=== PATIENT | female | born 1990 | race Caucasian/White ===

== ENCOUNTER 2020-03-03 13:44 | Emergency (ER) | payer OTHER, SELFPAY ==
[2020-03-03 14:02] VITALS: BP 136/75; PULSE 102; RESP 20; TEMP 36.6; O2SAT 100
--- NOTE | 2020-03-03 14:24 | ED.URI ---
HPI - URI/Sore Throat General Chief Complaint: Upper Respiratory Infection Stated Complaint: shortness of breath/sinus drainage/cough Time Seen by Provider: 03/03/20 14:25 Source: patient Mode of arrival: ambulatory Limitations: no limitations History of Present Illness HPI Narrative: Charlie Casarez is a 29 yo female with a PMH of epilepsy who comes to express care with complaints of sore throat cough and nasal drainage since Friday. She has twin 9-month-old babies and wants to make sure she doesn't have strep. States that she coughs/wheezes on occ Related Data Home Medications Medication Instructions Recorded Confirmed lamotrigine 200 mg PO BID 03/03/20 03/03/20 Allergies Allergy/AdvReac Type Severity Reaction Status Date / Time No Known Allergies Allergy Verified 03/03/20 14:21 Review of Systems Review of Systems: Narrative: CONSTITUTIONAL: Denies fever, chills, sweats. EYES: Denies visual changes, redness, discharge. ENT: Has rhinorrhea, mild congestion, has sore throat, otalgia. CARDIOVASCULAR: Denies chest pain, palpitations, edema. RESPIRATORY: Denies dyspnea, wheezing, mild cough GASTROINTESTINAL: Denies abdominal pain, nausea, vomiting, diarrhea. GENITOURINARY: Denies dysuria, hematuria, abnormal discharge SKIN: Denies rash or itching. NEUROLOGIC: Denies numbness, or focal weakness. PSYCHIATRIC: Denies anxiety or depression. [facility] Past Medical History Medical History (Updated 03/03/20 @ 14:36 by Constance Morales CNP) Preeclampsia Family History Family History Other Diabetes mellitus Hypertension Social History Social History (Updated 03/03/20 @ 14:34 by Constance Morales CNP) Smoking status: Never smoker Alcohol intake: current Comments At time of signature, I agree with nursing past medical, surgical, social and family history. There is no relevant family history pertinent to the presenting complaint. Exam Narrative: Exam Narrative: GENERAL: This is a well-nourished, well-developed patient, in mild distress. HEAD: normocephalic, atraumatic. EYES: Sclera clear/white. Vision is grossly intact. EARS: External ears normal, auditory canals clear and without drainage, TMs normal without perforation. Hearing grossly intact. NOSE: External nose normal without nasal discharge, nares with redness, has rhinorrhea. THROAT: Mucous membranes moist, posterior pharynx erythema NECK: Neck supple, mild tender on R CARDIOVASCULAR: mild tachycardic rate and rhythm without murmurs, gallops, or rubs. RESPIRATORY: Clear to auscultation. Breath sounds equal bilaterally. No wheezes, rales, or rhonchi. GASTROINTESTINAL: Abdomen soft, non-tender, SKIN: warm, intact with no suspicious lesions or rash, good texture and turgor. NEURO: awake, alert, and oriented to person, place and time. There were no obvious focal neurologic abnormalities. Steady gait EXTREMITIES: Normal range of motion. BACK: Nontender without deformity Course Course Emergency Course: Strep test Started on prednisone, Claritin, Vital Signs Vital signs: Vital Signs Temperature 97.8 F 03/03/20 14:02 Pulse Rate 102 H 03/03/20 14:02 Respiratory Rate 20 03/03/20 14:02 Blood Pressure 136/75 03/03/20 14:02 Pulse Oximetry 100 03/03/20 14:02 Temperature 97.8 F 03/03/20 14:02 Pulse Rate 102 H 03/03/20 14:02 Respiratory Rate 20 03/03/20 14:02 Blood Pressure 136/75 03/03/20 14:02 Pulse Oximetry 100 03/03/20 14:02 MDM - URI/Sore Throat Differential Diagnosis Differential diagnosis: Likely upper respiratory infection, sinusitis, bronchitis, pharyngitis and other Lab Data Labs: Strep Screen Presumptive Negative *(Reference Range: Negative)* Discharge Plan Discharge Clinical Impression: Pharyngitis Qualifiers: Pharyngitis/tonsillitis etiology: unspecified etiology Qualified Code(s): J02.9 - Acute pharyngitis,
== END 2020-03-03 14:59 | disposition home or self-care (01) ==
PROVIDERS: Emergency Provider Nurse Practitioner; PCP Internal Medicine
DX: J02.9 Acute pharyngitis, unspecified (principal); G40.909 Epilepsy, unspecified, not intractable, without status epilepticus
CPT/HCPCS: 87081; 87880; 99213; G0463

== ENCOUNTER 2022-09-15 11:38 | Emergency (ER) | payer OTHER, SELFPAY ==
--- NOTE | 2022-09-15 11:47 | ED.URI ---
HPI - URI/Sore Throat General Chief Complaint: Upper Respiratory Infection Stated Complaint: cold flu Time Seen by Provider: 09/15/22 12:03 Source: patient and RN notes reviewed Mode of arrival: ambulatory Limitations: no limitations History of Present Illness HPI Narrative: 32-year-old female presents concern for 2 week history of cough, nasal drainage, congestion. Reports cough keeps her awake at night. Reports headache and sore throat started today. She reports she has been taking [id number] medications without relief. MD elicited complaint: cough and nasal congestion Related Data Home Medications Medication Instructions Recorded Confirmed lamotrigine 200 mg tablet 200 mg PO BID 03/03/20 09/15/22 Allergies Allergy/AdvReac Type Severity Reaction Status Date / Time No Known Allergies Allergy Verified 09/15/22 11:45 Review of Systems Review of Systems: CONSTITUTIONAL: Reports malaise. Today chills, sweats, or fever. EYES: Denies visual changes, redness, or discharge. ENT: Reports rhinorrhea, congestion, sinus pain, and sore throat. CARDIOVASCULAR: Denies chest pain, palpitations, or edema. RESPIRATORY: Reports cough. Denies dyspnea. GASTROINTESTINAL: Denies abdominal pain, nausea, vomiting, diarrhea SKIN: Denies rash or itching. MUSCULOSKELETAL: Denies myalgia. NEUROLOGIC: Reports headache. All systems reviewed & are unremarkable except as noted in HPI and below PMFSH Past Medical History Medical History (Updated 09/15/22 @ 12:11 by Brittany Mensah NP) Preeclampsia Family History Family History Other Diabetes mellitus Hypertension Social History Social History (Updated 03/03/20 @ 14:34 by Consatnce Morales, S[employer]IOR LEAD DEVELOPER) Smoking status: Never smoker Alcohol intake: current Comments At time of signature, agree with nursing past medical, surgical, social and family history. There is no relevant family history pertinent to the presenting complaint Exam Narrative: GENERAL: Nontoxic appearing and in no acute distress. HEAD: Normocephalic EYES: PERRLA, conjunctivae clear ENT: Nares clear, turbinates edematous and erythematous, yellow discharge. Mucous membranes moist. TM pearly ash with dull light reflex bilaterally; no tragal tenderness. Oropharynx erythematous without lesions. Tonsils not enlarged and without exudate, no drooling, no hoarseness, no trismus, uvula midline. NECK: Supple. No lymphadenopathy CHEST: Clear to auscultation, breath sounds equal. No wheezing, rhonchi, rales, or stridor. No respiratory distress, speaks in full sentences. Cough noted HEART: Regular rate and rhythm. No murmur heard. SKIN: Warm, dry, no rash. NEURO: Alert and oriented x3. PSYCH: Normal mood and affect Course Course Emergency Course: Patient is aware of diagnosis, understands and agrees to treatment plan. Anticipatory guidance given. Patient agrees to follow-up as directed and is aware of reasons to seek care at the emergency department. Portions of this record may have been created with voice recognition software Level of Care: Express Care Visit Vital Signs Vital signs: Vital Signs Temperature 98.7 F 09/15/22 11:48 Pulse Rate 87 09/15/22 11:48 Respiratory Rate 20 09/15/22 11:48 Blood Pressure 134/65 09/15/22 11:48 Pulse Oximetry 100 09/15/22 11:48 Oxygen Delivery Room Air 09/15/22 11:48 Temperature 98.7 F 09/15/22 11:48 Pulse Rate 87 09/15/22 11:48 Respiratory Rate 20 09/15/22 11:48 Blood Pressure 134/65 09/15/22 11:48 Pulse Oximetry 100 09/15/22 11:48 Oxygen Delivery Room Air 09/15/22 11:48 Reviewed. MDM - URI/Sore Throat MDM Narrative Medical decision making narrative: Differential diagnosis considered: Wheatley virus, strep pharyngitis, allergic rhinitis, upper respiratory tract infection, sinusitis, rhinosinusitis, nasopharyngitis. viral pharyngitis, otitis media, otitis externa, p
[2022-09-15 11:48] VITALS: BP 134/65; PULSE 87; RESP 20; TEMP 37.1; O2SAT 100
== END 2022-09-15 12:14 | disposition home or self-care (01) ==
PROVIDERS: Emergency Provider Nurse Practitioner
DX: J32.9 Chronic sinusitis, unspecified (principal); J40 Bronchitis, not specified as acute or chronic
CPT/HCPCS: 99213; G0463

== ENCOUNTER 2022-10-19 14:24 | Emergency (ER) | payer OTHER, SELFPAY ==
[2022-10-19 14:29] VITALS: BP 114/75; PULSE 85; RESP 16; TEMP 36.6; O2SAT 100
--- NOTE | 2022-10-19 14:34 | ED.URI ---
HPI - URI/Sore Throat General Chief Complaint: Upper Respiratory Infection Stated Complaint: Sore Throat Source: patient and RN notes reviewed History of Present Illness HPI Narrative: 32-year-old female presents urgent care with complaints of sore throat since . Patient states her twins tested positive history was strep throat. Patient denies any known fevers or chills. Denies any ear pain, vomiting, diarrhea, chest pain, or shortness of breath. Some parts of this dictation were generated by voice recognition software and may contain typographical and/or grammatical inaccuracies. Related Data Home Medications Medication Instructions Recorded Confirmed lamotrigine 200 mg tablet 200 mg PO BID 03/03/20 10/19/22 Allergies Allergy/AdvReac Type Severity Reaction Status Date / Time No Known Allergies Allergy Verified 10/19/22 14:44 Review of Systems Review of Systems: CONSTITUTIONAL: Denies fever, chills, or sweats. EYES: Denies visual changes, redness, or discharge. ENT: sore throat CARDIOVASCULAR: Denies chest pain, palpitations, or edema. RESPIRATORY: Denies cough or dyspnea. GASTROINTESTINAL: Denies abdominal pain, nausea, vomiting, or diarrhea. GENITOURINARY: Denies dysuria or hematuria. SKIN: Denies rash or itching. MUSCULOSKELETAL: Denies back pain, joint pain, or myalgia. NEUROLOGIC: Denies headache, numbness, or weakness. [facility] Past Medical History Medical History (Updated 10/19/22 @ 14:45 by Lashae Blanchard, THUAN) Preeclampsia Family History Family History Other Diabetes mellitus Hypertension Social History Social History (Updated 03/03/20 @ 14:34 by Constance Morales, COPPER TAPPER) Smoking status: Never smoker Alcohol intake: current Comments At the time of my signature, I reviewed and agree with the nursing past medical, surgical, social, and family history. There is no relevant family history pertinent to the patient complaint. Exam Narrative: GENERAL: This is a well-nourished, well-developed patient, in no apparent distress. HEAD: normocephalic, atraumatic. EYES: PERRL. Sclera clear/white. Vision is grossly intact. EARS: External ears normal, auditory canals clear and without drainage, TMs normal without perforation. Hearing grossly intact. NOSE: External nose normal with no obvious nasal discharge, nares without redness, no rhinorrhea. THROAT: Mucous membranes moist, posterior pharynx erythemic. No exudate noted.. NECK: Neck supple, non-tender without lymphadenopathy, masses or thyromegaly. CARDIOVASCULAR: Regular rate and rhythm without murmurs, gallops, or rubs. RESPIRATORY: Clear to auscultation. Breath sounds equal bilaterally. No wheezes, rales, or rhonchi. GASTROINTESTINAL: Abdomen soft, non-tender, nondistended. Bowel sounds are active. No hepato-splenomegaly, or palpable masses. No guarding. SKIN: warm, intact with no suspicious lesions or rash, good texture and turgor. NEURO: awake, alert, and oriented to person, place and time. There were no obvious focal neurologic abnormalities. EXTREMITIES: No clubbing, cyanosis, or edema. No joint tenderness, effusion, or edema noted. BACK: Nontender without deformity or crepitance. No flank tenderness. Course Course Level of Care: Express Care Visit Vital Signs Vital signs: Vital Signs Temperature 98 F 10/19/22 14:29 Pulse Rate 85 10/19/22 14:29 Respiratory Rate 16 10/19/22 14:29 Blood Pressure 114/75 10/19/22 14:29 Pulse Oximetry 100 10/19/22 14:29 Oxygen Delivery Room Air 10/19/22 14:29 Temperature 98 F 10/19/22 14:29 Pulse Rate 85 10/19/22 14:29 Respiratory Rate 16 10/19/22 14:29 Blood Pressure 114/75 10/19/22 14:29 Pulse Oximetry 100 10/19/22 14:29 Oxygen Delivery Room Air 10/19/22 14:29 Reviewed MDM - URI/Sore Throat MDM Narrative Medical decision making narrative: Rapid strep is negative in the office; however
== END 2022-10-19 14:49 | disposition home or self-care (01) ==
PROVIDERS: Emergency Provider Nurse Practitioner Family
DX: J02.9 Acute pharyngitis, unspecified (principal)
CPT/HCPCS: 87081; 87880; 99213; G0463

== ENCOUNTER 2022-11-06 13:07 | Emergency (ER) | payer OTHER, SELFPAY ==
[2022-11-06 13:12] VITALS: BP 118/58; PULSE 86; RESP 20; TEMP 36.6; O2SAT 100
--- NOTE | 2022-11-06 13:22 | ED.URI ---
HPI - URI/Sore Throat General Chief Complaint: Upper Respiratory Infection Stated Complaint: sore throat headache fever Time Seen by Provider: 11/06/22 13:12 Source: patient and RN notes reviewed History of Present Illness HPI Narrative: Patient is a 32-year-old female who presents to urgent care with complaints of a sore throat since 5:00 a.m.. Patient states that she has also had a fever and headache. States that all 3 of her children are positive for strep as well as her [id number]. Patient took ibuprofen for symptoms. No other acute complaints. No acute distress noted. Patient aware of the plan of care. Some parts of this dictation were generated by voice recognition software and may contain typographical and/or grammatical inaccuracies. Related Data Home Medications Medication Instructions Recorded Confirmed lamotrigine 200 mg tablet 200 mg PO BID 03/03/20 11/06/22 Allergies Allergy/AdvReac Type Severity Reaction Status Date / Time No Known Allergies Allergy Verified 11/06/22 13:20 Review of Systems Review of Systems: CONSTITUTIONAL: Reports of fever EYES: Denies visual changes, redness, or discharge. ENT: Denies rhinorrhea, congestion, or otalgia. Reports of sore throat CARDIOVASCULAR: Denies chest pain, palpitations, or edema. RESPIRATORY: Denies cough or dyspnea. GASTROINTESTINAL: Denies abdominal pain, nausea, vomiting, or diarrhea. GENITOURINARY: Denies dysuria or hematuria. SKIN: Denies rash or itching. MUSCULOSKELETAL: Denies back pain, joint pain, or myalgia. NEUROLOGIC: Denies headache, numbness, or weakness. All other systems reviewed are negative, except as documented in HPI. PMFSH Past Medical History Medical History (Updated 11/06/22 @ 13:32 by FRIEDA Gil) Preeclampsia Family History Family History Other Diabetes mellitus Hypertension Social History Social History (Updated 03/03/20 @ 14:34 by Constance Morales, [employer]LE [employer] DEVELOPER) Smoking status: Never smoker Alcohol intake: current Comments At the time of my signature, I reviewed and agree with the nursing past medical, surgical, social, and family history. There is no relevant family history pertinent to the patient complaint. Exam Narrative: GENERAL: This is a well-nourished, well-developed patient, in no apparent distress. HEAD: normocephalic, atraumatic. EYES: PERRL. Sclera clear/white. Vision is grossly intact. EARS: External ears normal, auditory canals clear and without drainage, TMs normal without perforation. Hearing grossly intact. NOSE: External nose normal with no obvious nasal discharge, nares without redness, no rhinorrhea. THROAT: Mucous membranes moist, mild erythema to posterior pharynx with moderate postnasal drainage. NECK: Neck supple CARDIOVASCULAR: Regular rate and rhythm without murmurs, gallops, or rubs. RESPIRATORY: Clear to auscultation. Breath sounds equal bilaterally. No wheezes, rales, or rhonchi. SKIN: warm, intact with no suspicious lesions or rash, good texture and turgor. NEURO: awake, alert, and oriented to person, place and time. There were no obvious focal neurologic abnormalities. EXTREMITIES: No clubbing, cyanosis, or edema. Course Course Level of Care: Express Care Visit Vital Signs Vital signs: Vital Signs Temperature 97.8 F 11/06/22 13:12 Pulse Rate 86 11/06/22 13:12 Respiratory Rate 20 11/06/22 13:12 Blood Pressure 118/58 L 11/06/22 13:12 Pulse Oximetry 100 11/06/22 13:12 Oxygen Delivery Room Air 11/06/22 13:12 Temperature 97.8 F 11/06/22 13:12 Pulse Rate 86 11/06/22 13:12 Respiratory Rate 20 11/06/22 13:12 Blood Pressure 118/58 L 11/06/22 13:12 Pulse Oximetry 100 11/06/22 13:12 Oxygen Delivery Room Air 11/06/22 13:12 Reviewed MDM - URI/Sore Throat MDM Narrative Medical decision making narrative: Reviewed lab results with the patient. She is aware that she is
== END 2022-11-06 13:43 | disposition home or self-care (01) ==
PROVIDERS: Emergency Provider Nurse Practitioner Family
DX: J02.0 Streptococcal pharyngitis (principal)
CPT/HCPCS: 87880; 99213; G0463

== ENCOUNTER 2023-05-09 13:32 | Emergency (ER) | payer OTHER, SELFPAY ==
[2023-05-09 13:42] VITALS: BP 140/75; PULSE 90; RESP 16; TEMP 36.7; O2SAT 100
--- NOTE | 2023-05-09 14:06 | ED.URI ---
HPI - URI/Sore Throat General Chief Complaint: Upper Respiratory Infection Stated Complaint: Cough, Chest Congestion, Sore Throat Time Seen by Provider: 05/09/23 14:06 Source: patient, RN notes reviewed and old records reviewed Mode of arrival: ambulatory Limitations: no limitations History of Present Illness HPI Narrative: 33-year-old female presents to the [facility] with complaints of cough, chest congestion for 3 days. Sore throat started this morning. States that her twins just started school. Has taken ibuprofen, Fe Mucinex. Related Data Home Medications Medication Instructions Recorded Confirmed lamotrigine 200 mg tablet 200 mg PO BID 03/03/20 05/09/23 Allergies Allergy/AdvReac Type Severity Reaction Status Date / Time No Known Allergies Allergy Verified 11/06/22 13:20 Review of Systems Review of Systems: All systems reviewed & are unremarkable except as noted in HPI and below Constitutional: Constitutional: Reports no additional constitutional complaints Eyes: Eyes: Reports no additional eye complaints ENT: Reports as per HPI Cardiovascular: Cardiovascular: Reports no additional cardiovascular complaints, Denies chest pain and Denies dyspnea Respiratory: Respiratory: Reports as per HPI, Denies chest congestion, Reports cough and Denies dyspnea Gastrointestinal: Gastrointestinal: Reports no additional gastrointestinal complaints, Denies abdominal pain, Denies nausea and Denies vomiting Musculoskeletal: Musculoskeletal: Reports no additional musculoskeletal complaints Integumentary/Breasts: Skin/Breast: Reports system reviewed and no additional complaints, except as docu Neurologic: Reports system reviewed and no additional complaints, except as documented Psychiatric: Psychiatric: Reports no additional psychiatric complaints Allergic/Immunologic: Allergic/Immunologic: Reports no additional allergic/immunologic complaints PMFSH Past Medical History Medical History (Updated 05/10/23 @ 11:43 by Brittany Georges APRN) Epilepsy Preeclampsia Family History Family History Other Diabetes mellitus Hypertension Social History Social History Smoking status: Never smoker Alcohol intake: current Comments At the time of my signature, I reviewed and agree with the nursing past medical, surgical, social, and family history. There is no relevant family history pertinent to the patient complaint. Exam Const: General: cooperative, healthy appearing, comfortable, no acute distress, well developed, alert and well nourished Nutritional Appearance: well nourished Orientation/consciousness: patient oriented x3 Limitations: no limitations HENMT: Head: normal to inspection Ears: hearing grossly normal bilaterally, external ears normal, TM's normal bilaterally, EAC's normal and mastoids normal Face/Nose/Sinus: Normal external nose present, Normal nares present, Normal nasal mucous membranes and turbinates present, normal facial exam and face symmetric Face and sinus: normal facial exam and face symmetric Mouth: Yes Normal oral and palatal mucosa present, Yes lip normal and Yes moist mucous membranes Throat: posterior oropharynx normal, tonsils normal, uvula midline and uvula laterally displaced Eyes: General: appearance normal, both eyes and all related structures Alignment and Position: alignment normal Periorbital: periorbital findings normal Pupils: Equal, round and reactive pupils present EOM: EOMs intact bilaterally Neck: Neck: normal visual inspection, full ROM, no lymphadenopathy and no meningeal signs Chest: Chest palpation & inspection: normal inspection of the chest Resp: Effort & Inspection: normal respiratory effort and able to speak in complete sentences Auscultation: clear to auscultation bilaterally, no crackles, no rales, no rhonchi and no wheezes Cardio: Rate: r
== END 2023-05-09 14:25 | disposition home or self-care (01) ==
PROVIDERS: Emergency Provider Nurse Practitioner
DX: J06.9 Acute upper respiratory infection, unspecified (principal); J04.0 Acute laryngitis; J40 Bronchitis, not specified as acute or chronic; G40.909 Epilepsy, unspecified, not intractable, without status epilepticus
CPT/HCPCS: 99213; G0463

== ENCOUNTER 2023-08-19 15:31 | Emergency (ER) | payer OTHER, SELFPAY ==
[2023-08-19 15:43] VITALS: BP 105/69; PULSE 96; RESP 18; TEMP 36.7; O2SAT 100
--- NOTE | 2023-08-19 16:46 | ED.URI ---
HPI - URI/Sore Throat General Chief Complaint: Upper Respiratory Infection Stated Complaint: Cough Time Seen by Provider: 08/19/23 16:46 Source: patient, RN notes reviewed and old records reviewed Mode of arrival: ambulatory Limitations: no limitations History of Present Illness HPI Narrative: 33-year-old female who presents to [facility] with complaints of scratchy sore throat and cough which started yesterday. Patient reports that her children had RSV last week.Patient reports no fevers, chills or body aches, denies any shortness of breath, reports no expectoration of sputum. Patient states that she has been taking OTC cough medication for her symptoms. MD elicited complaint: cough and sore throat Onset (ago): day(s) (1) Consistency: constant Pain scale (0-10): 5 Able to tolerate fluids by mouth: Yes Treatments prior to arrival: other (cough medication) Related Data Home Medications Medication Instructions Recorded Confirmed lamotrigine 200 mg tablet 100 mg PO QAM 03/03/20 08/19/23 Allergies Allergy/AdvReac Type Severity Reaction Status Date / Time No Known Allergies Allergy Verified 08/19/23 16:10 Review of Systems Review of Systems: CONSTITUTIONAL: Denies malaise, chills, sweats, or fever. EYES: Denies visual changes, redness, or discharge. ENT: Reports rhinorrhea, congestion, no sinus pain,no otalgia and positive for sore throat. CARDIOVASCULAR: Denies chest pain, palpitations, or edema. RESPIRATORY: Reports cough.? Denies dyspnea. GASTROINTESTINAL: Denies abdominal pain, nausea, vomiting, diarrhea SKIN: Denies rash or itching. MUSCULOSKELETAL: Denies myalgia. NEUROLOGIC: Denies headache. All systems reviewed & are unremarkable except as noted in HPI and below PMFSH Past Medical History Medical History (Updated 08/21/23 @ 20:06 by Makayla Fallon NP) Epilepsy Preeclampsia Surgical History Surgical History (Updated 08/21/23 @ 20:06 by Makayla Fallon NP) H/O laparoscopy endometriosis surgery History of dilatation and curettage Previous section x2 Family History Family History Other Diabetes mellitus Hypertension Social History Social History Smoking status: Never smoker Alcohol intake: current Comments At time of signature, agree with nursing past medical, surgical, social and family history. There is no relevant family history pertinent to the presenting complaint Exam Narrative: GENERAL: Well-appearing, well-nourished, and in no acute distress. HEAD: Normocephalic EYES: PERRLA, conjunctivae clear ENT: Nares clear, turbinates edematous and erythematous, clear discharge. Mucous membranes moist. TM pearly ash with dull light reflex bilaterally; no tragal tenderness. Oropharynx erythematous without lesions. Tonsils not enlarged and without exudate, no drooling, no hoarseness, no trismus, uvula midline.post nasal drainage NECK: Supple. No lymphadenopathy CHEST: Clear to auscultation, breath sounds equal. No wheezing, rhonchi, rales, or stridor. No respiratory distress, speaks in full sentences.dry cough,SAO2 100% on room air HEART: Regular rate and rhythm. No murmur heard. SKIN: Warm, dry, no rash. NEURO: Alert and oriented x3. PSYCH: Normal mood and affect Course Course Emergency Course: Patient is aware of diagnosis, understands and agrees to treatment plan.? Anticipatory guidance given.? Patient agrees to follow-up as directed and is aware of reasons to seek care at the emergency department. Portions of this record may have been created with voice recognition software Level of Care: Express Care Visit Vital Signs Vital signs: Vital Signs Temperature 36.7 C 08/19/23 15:43 Pulse Rate 96 08/19/23 15:43 Respiratory Rate 18 08/19/23 15:43 Blood Pressure 105/69 08/19/23 15:43 Pulse Oximetry 1
== END 2023-08-19 17:00 | disposition home or self-care (01) ==
PROVIDERS: Emergency Provider Registered Nurse
DX: R05.1 Acute cough (principal); J02.9 Acute pharyngitis, unspecified; G40.909 Epilepsy, unspecified, not intractable, without status epilepticus
CPT/HCPCS: 87081; 87880; 99213; G0463

== ENCOUNTER 2025-05-30 10:30 | Emergency (ER) | payer OTHER, SELFPAY ==
[2025-05-30 10:34] VITALS: BP 119/72; PULSE 77; RESP 16; TEMP 36.6; O2SAT 100
--- NOTE | 2025-05-30 10:47 | ED.URI ---
HPI - URI/Sore Throat General Chief Complaint: Upper Respiratory Infection Stated Complaint: cough Time Seen by Provider: 05/30/25 10:45 Source: patient, RN notes reviewed and old records reviewed Mode of arrival: ambulatory Limitations: no limitations History of Present Illness HPI Narrative: 35 year old female who [facility] with complaints of 1 week duration of cough, sinus congestion and drainage with throat scratchy. Patient reports that son did test positive for strep last week. She states that she has been taking Fe and Tessalon Perles without any improvement in her symptoms. Patient reports that she has no fevers or chills has increased nasal drainage. Patient reports that she has not been resting due to cough. MD elicited complaint: cough and sore throat Onset (ago): week(s) (1) Severity: moderate Description of mucous: clear Able to tolerate fluids by mouth: Yes Treatments prior to arrival: other (Fe and Tessalon Perles) Related Data Home Medications ?Medication ?Instructions ?Recorded ?Confirmed ?Last Taken ?Type lamotrigine 200 mg tablet 100 mg PO QAM 03/03/20 08/19/23 Unknown History Allergies Allergy/AdvReac Type Severity Reaction Status Date / Time No Known Allergies Allergy Verified 05/30/25 10:40 Review of Systems Review of Systems: CONSTITUTIONAL: Reports malaise, no chills, sweats, or fever. EYES: Denies visual changes, redness, or discharge. ENT: Reports rhinorrhea, congestion, sinus pain,no otalgia and scratchy sore throat. CARDIOVASCULAR: Denies chest pain, palpitations, or edema. RESPIRATORY: Reports frequent cough.? Denies dyspnea. GASTROINTESTINAL: Denies abdominal pain, nausea, vomiting, diarrhea SKIN: Denies rash or itching. MUSCULOSKELETAL: Denies myalgia. NEUROLOGIC: Denies headache. All systems reviewed & are unremarkable except as noted in HPI and below PMFSH Past Medical History Medical History Asthma as child Preeclampsia Epilepsy Surgical History Surgical History H/O laparoscopy endometriosis surgery History of dilatation and curettage Previous section x2 Family History Family History Other Diabetes mellitus Hypertension Social History Social History (Updated 05/30/25 @ 11:52 by Makayla Fallon NP) Smoking status: Never smoker Alcohol intake: current Substance use type: does not use Living arrangements: with family Gender identity (if verbalized by the patient): Female Comments At time of signature, agree with nursing past medical, surgical, social and family history. There is no relevant family history pertinent to the presenting complaint Exam Narrative: GENERAL: Well-appearing, well-nourished, and in no acute distress. HEAD: Normocephalic EYES: PERRLA, conjunctivae clear ENT: Nares clear, turbinates edematous and erythematous, clear discharge.. Mucous membranes moist. TM pearly ash with dull light reflex bilaterally; no tragal tenderness. Oropharynx erythematous without lesions. Tonsils not enlarged and without exudate, no drooling, no hoarseness, no trismus, uvula midline. NECK: Supple. No lymphadenopathy CHEST: Clear to auscultation, breath sounds equal. No wheezing, rhonchi, rales, or stridor. No respiratory distress, speaks in full sentences. frequent cough SAO2 100% on room air HEART: Regular rate and rhythm. No murmur heard. SKIN: Warm, dry, no rash. NEURO: Alert and oriented x3. PSYCH: Normal mood and affect Course Course Emergency Course: Patient is aware of diagnosis, understands and agrees to treatment plan.? Anticipatory guidance given.? Patient agrees to follow-up as directed and is aware of reasons to seek care at the emergency department. Portions of this record may have been created with voice recognition software Level of Care: Express Care Visit Vital Signs Vital signs: Vital Signs Temperature 36.6 C 05/30/25 10:34 Pulse Rate 77 05/30/25 10:34 Respiratory Rate 16 05/30/25 10:34 Blood Pressure 119/72 05/30/25 10:34 Pulse Oximetry 100 05/30/25 10:34 Oxygen Delivery Room Air 05/30/25 10:34 Temperature 36.6 C 05/30/25 10:34 Pulse Rate 77 05/30/25 10:34 Respiratory Rate 16 05/30/25 10:34 Blood Pressure 119/72 05/30/25 10:34 Pulse Oximetry 100 10/13/25 10:34 Oxygen Delivery Room Air 05/30/25 10:34 Reviewed MDM - URI/Sore Throat MDM Narrative Medical decision making narrative: Differential diagnosis considered: Wheatley virus, strep pharyngitis, allergic rhinitis, upper respiratory tract infection, sinusitis, rhinosinusitis, nasopharyngitis. viral pharyngitis, otitis media, otitis externa, pneumonia, bronchitis, viral cough syndrome, viral syndrome, and influenza.? Exam findings show no acute concerns or changes; patient is non-toxic appearing and is in no distress.? Patient is appropriate for outpatient treatment and follow-up. Differential Diagnosis Differential diagnosis: Likely upper respiratory infection, viral infection, pharyngitis and other (strep pharyngitis, acute cough) Medical Records Attestation: I reviewed the patient's medical records. Lab Data Attestation: I reviewed the patient's lab results. Lab results narrative: strep screen negative, culture sent Critical Care Time Critical Care Time Critical Care Time: No Discharge Plan Discharge Clinical Impression: Acute cough Upper respiratory infection Qualifiers: URI type: unspecified URI Qualified Code(s): J06.9 - Acute upper respiratory infection, unspecified Patient Disposition: Home Condition: Stable Instructions: Upper Respiratory Infection (ED), Acute Cough (ED) Additional Instructions: Increase fluids especially juices and water Zbqa-[id number]-[id number] cough and cold medicine of your choice for your symptoms Prescription cough medicine as directed--caution drowsiness and no driving or alcohol Continue your inhaler/nebulizer as directed Steroids as directed--take with food heat to the face 20-30 minutes 4-6 times a day for pain Salt water gargles, throat lozenges or throat sprays as desired Continued your Zyrtec Claritin or Fe may include Sudafed in a.m. If your symptoms persist, change or worsen significantly before you can contact your personal physician then please, without delay, go to the emergency department for further evaluation. Follow-up with PCP in 7-10 days or sooner if needed Follow up with PCP soon in regards to your blood pressure which is elevated above threshold for referral. Blood pressure above 120/80 may indicate pre-hypertension. Patient Language: Citizen Of [place] Prescriptions: New prednisone 20 mg tablet 40 mg PO DAILY Qty: 10 0RF Rx Instructions: Take with food in the a.m. promethazine-codeine 6.25-10 mg/5 mL syrup 5 ml PO Q6H PRN (Reason: cough) Qty: 118 0RF No Action lamotrigine 200 mg tablet 100 mg PO QAM Follow-up/Referrals: PHYSICIAN NOT ON STAFF,NONSTAFF [Primary Care Provider] Time of Disposition: 11:14 Quality Philip Coma Scale Eyes: Open Verbal: Oriented and Alert Motor: Follows Commands Philip Coma Total Score: 15
[2025-05-30 11:14] LABS: EDSTREPNEGPOS1 Negative (Negative)
--- OUTSIDE RECORDS SUMMARY | 2025-05-30 11:34 | XMS_ITS | Clinical Summary ---
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) (Primary Dx) from Last 3 Months Immunizations Immunization Administration Dates Next Due Influenza, Quadrivalent, Spl it, Intramuscular 04/15/2019 Influenza, Quadrivalent, Spl it, Preservative Free, Intramuscular 05/28/2021,05/31/2020,05/03/2019,05/19 Influenza, Unspecified 06/12/2023,06/12/2022 Moderna Sars-cov-2 Monovalen t Vaccination (6-11 YRS) 06/12/2023 Tdap 06/12/2021,05/03/2019,04/15/2019 Medical History Medical History Date Comments Seizures (HCC) Social History Tobacco Use Types Packs/Day Years Used Date Smoking Tobacco: Never Smokeless Tobacco: Never Alcohol Use Standard Drinks/Week Comments Not Currently 0 (1 standard drink = 0.6 oz pur e alcohol) Personal Safety Answer Date Recorded Getting School Help Needed Not on file 08/06 Comments No Sex and Gender Information Value Date Recorded Sex Assigned at Not on file Legal Sex Female 9:46 PM EC TEACHER Gender Identity Not on file Sexual Orientation Not on file Obstetrics History Para Term AB IAB SAB Ectopic Multiple Livin g Live Births 1 Date Outcome GA Total Labor Labor/2nd/3rd Weight Sex Type Anes PTL Tita A1 A5 Name Clin Last Filed Vital Signs Vital Sign Reading Time Taken Comments Blood Pressure 124/81 07/18/2021 8:18 AM EC TEACHER Pulse 83 07/18/2021 8:18 AM EC TEACHER Temperature 36.2 C (97.1 F) 07/18/2021 8:18 AM EC TEACHER Respiratory Rate 16 08/12/2020 11:19 AM EC TEACHER Oxygen Saturation 99% 07/18/2021 8:18 AM EC TEACHER Inhaled Oxygen Concentration - - Weight 89 kg (196 lb 5 oz) 07/18/2021 8:18 AM CS T Height 172.7 cm (5' 8) 07/18/2021 8:18 AM EC TEACHER Body Mass Index 29.85 07/18/2021 8:18 AM EC TEACHER Plan of Treatment Health Maintenance Due Date Last Done Comments Cervical Cancer Screening 1990 Depression Screening 1990 Hepatitis C Screening 1990 Varicella Vaccines (1 of 2 - 13+ 2-dose series) 2003 Hepatitis B Screening 2008 Regular Well Visit/Exam 18-64 2008 HPV Vaccines (1 - 3-dose SCDM series) 2017 Covid-19 Vaccine (2 - 2024- season) 2025 06/12/2023, 06/12/2023 DTaP/Tdap/Td Vaccine (4 - Td or Tdap) 06/12/2031 06/12/2021, 05/03/2019, 04/15/2019 Influenza Vaccine Completed 05/26/2025, , 06/12/2023, Additional history exists Pneumococcal vaccine <65 Aged Out No longer eligible based on patient's age to complete this topic Insurance [facility] H[facility] Care Teams Stone Operator Relationship Specialty [place] [address] [place] [address] [phone] PCP - General Internal Medicine 09/07/21
--- OUTSIDE RECORDS SUMMARY | 2025-05-30 11:34 | XMS_ITS | Clinical Summary ---
Author Organization [facility] Address [address] [place] [address] Care Team Providers Care Sap Senior Developer Name Role Phone Sophia Briones MD Primary Care Provider [phone] Fredy HUMPHRIES MD, Jon Martin Unavailable [phone] Trey Gloria MD Unavailable [phone] Sophia Briones MD Unavailable [phone] Source Comments [facility],non-owned Affiliates and Associated Physician Practices is amultiple site organization consisting of ambulatory clinics and hospital sitesin [place], [place], [place] and [place]. This disclosure is being madepursuant to the Care Everywhere program and may not contain all information available regarding this patient. Last updated 18.[facility] Allergies No known active allergies Medications * Be aware that medications may not be up to date on this document. Alwaysverify current medications with the patient. lamoTRIgine (LAMICTAL) 200 MG tablet Take 1 (one) tablet by mouth 2 times daily 0 10/19/2020 Active Multiple Vitamins-Minera ls (CENTRUM WOMEN PO) Take 1 tablet by mouth once daily Active VITAMIN D, CHOLECALCIFEROL , PO Take 1 tablet by mouth once daily Active clonazePAM, disintegrating, (KlonoPIN Wafer) 0.5 MG tablet TAKE 1 TABLET (0.5 MG TOTAL) BY MOUTH 2 (TWO) TIMES A DAY NEEDED FOR SEIZURES 08/12/2023 Active tretinoin (Retin-A) 0.05 % cream Apply to affected area once daily 12/08/2024 Active Active Problems Problem Noted Date Diagnosed Date Adult acne 12/28/2024 Seasonal allergies 12/24/2022 Other insomnia 12/24/2022 Overview (12/24/2022): Takes melatonin Iron deficiency anemia 12/06/2020 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 08/06/2018 Overview (12/26/2023): Has had treatment since 2013 Resolved Problems Problem Noted Date Diagnosed Date Resolved Date 39 weeks gestation of 08/21/2021 12/24/2022 care, subsequent pr egnancy, third trimester 08/21/2021 12/24/2022 IUGR (intrauterine growth re striction) in prior , , third trimester 08/03/2021 12/24/2022 36 weeks gestation of 08/03/2021 12/24/2022 contractions 07/26/2021 023 Urinary frequency 04/24/2021 12/24/2022 History of pre-eclampsia in prior , currently 02/14/2021 12/24/2022 Seizure disorder during , antepartum 02/15/20 21 12/24/2022 Overview (02/14/2021): Lamictal 200 mg BID, Dr. Daniel History of delivery affecting 02/14/2021 12/24/2022 Body mass index (BMI) 27.0-27.9, adult 07/13/2019 02/14/2021 Group beta Strep positive 05/27/2019 Preeclampsia, severe 05/27/2019 019 Seizure disorder during preg maximus, antepartum, unspecified trimester 05/03/20192020 Overview (05/03/2019): Lamictal. Has a Neurologist Gestational hypertension, antepartum 04/23/2019 05/27/2019 Overview (05/03/2019): Mild Preeclampsia Evaluate anatomy not seen on prior sonogram 03/15/2019 09/08/2019 screening for feta l growth retardation using ultrasonics 03/15/2019 12/07/2020 Overview (05/18/2022): IMO 2021 Update Twin , antepartum 01/13/2019 0 02/14/2021 Overview (05/03/2019): Di/DI, IVF, female factor resulting from in vitro fertilization, antepartum 01/13/2019 02/14/2021 Preoperative examination 05/19/2018 Diagnosis unknown 05/19/2018 01/13/2019 Dichorionic diamniotic twin in third trimester 12/07/2020 Epilepsy affecting in third trimester 02/06/2021 History of seizure disorder 02/14/2021 Overview (12/07/2020): lamictal last august 2017 Abdominal pain in , third trimester 12/24/2022 Immunizations Immunization Administration Dates Next Due Polyheal primary monoval ent 12+ yr 0.3mL Purple cap 06/12/2023 FLU VACCINE QUAD IIV4 SPLIT 0.25 ML IM 04/15/2019 INFLUENZA VACCINE 06/12/2023,06/12/2022 INFLUENZA VACCINE, QUADR. (F LUZONE; FLULAVAL; FLUARIX; AFLURIA QUADRIVALENT; 6MO+), 0.5 ML (IIV4) 05/28/2021,05/31/2020,05/03/2019,2017 MMR 06/06/2019() TDAP (7yrs+) 06/12/2021, 9(),05/03/2019,03/19 Family History Medical History Relation Name Comments Asthma Brother Cancer Father prostate Cancer - Prostate Father Hypertension Father Pacemaker Father Osteoporosis Mother Leukemia Paternal Grandfather Cancer - Ovarian Paternal Grandmother Diabetes Paternal Grandmother Diabetes - Type 2 Paternal Grandmother Relation Name Status Comments Brother Alive Father Maternal Grandfather Maternal Grandmother Alive Mother Alive Paternal Grandfather Paternal Grandmother Alive Social History Tobacco Use Types Packs/Day Years Used Date Smoking Tobacco: Never Smokeless Tobacco: Never Tobacco Cessation:Counseling Given: Not Answered Alcohol Use Standard Drinks/Week Comments Not Currently 0 (1 standard drink = 0.6 oz pur e alcohol) Rarely PHQ-2 Answer Date Recorded Patient Health Questionnaire-2 Score 0 12/28/2024 Education Answer Date Recorded What is the highest level of school you have completed or the highest degree you have received? Associate degree: academic program 05/13/2019 Comments No Sex and Gender Information Value Date Recorded Sex Assigned at Not on file Legal Sex Female 5:39 AM TUFTING MACHINE FIXER Gender Identity Not on file Sexual Orientation Not on file Occupation Industry Job Start Date Job End Date stay at home mom Not on file Not on file Not on file Last Filed Vital Signs Vital Sign Reading Time Taken Comments Blood Pressure 104/62 12/28/2024 1:34 PM CDT Pulse 71 12/28/2024 1:34 PM CDT Temperature 36.3 C (97.4 F) 12/28/2024 1:34 PM CDT Respiratory Rate 18 12/28/2024 1:34 PM CDT Oxygen Saturation 99% 12/28/2024 1:34 PM CDT Inhaled Oxygen Concentration - - Weight 63 kg (139 lb) 12/28/2024 1:34 PM CDT Height 172.7 cm (5' 8) 12/28/2024 1:34 PM CDT Body Mass Index 21.13 12/28/2024 1:34 PM CDT Plan of Treatment Upcoming Encounters Date Type Department Care Team (Late st Contact Info) Description 12/29/2025 1:00 PM CDT Office Visit [facility] - Family Medicine [address] [place] [address] [place] [address] [place] [address] Health Maintenance Due Date Last Done Comments HEPATITIS B VACCINE (1 of 3 - 19+ 3-dose series) 2009 HPV VACCINE (1 - 3-dose SCDM series) 2017 COVID-19 VACCINE ( - season) 2025 06/12/2023, 10/17/2020, 09/14/2020 INFLUENZA VACCINE (#1) 2025 , 06/12/2022, 05/28/2021, Additional history exists PAP with HPV 10/13/2028 10/13/2023, 02/02/2021 DTAP/TDAP/TD VACCINES (4 - Td or Tdap) 06/12/2031 06/12/2021, 05/03/2019, 04/15/2019 ZOSTER VACCINE (1 of 2) 2040 HEPATITIS C SCREENING Completed 12/24/2022 HIV SCREENING Completed 12/24/2022, 01/17, 12/28/2018 DEPRESSION SCREENING Completed 12/28/2024, 10/13/2023, 12/06/2022, Additional history exists HIB VACCINE Aged Out No longer eligi ble based on patient's age to complete this topic MENINGOCOCCAL (Group B) VACCINE SHARED DECISION-MAKING Aged Out No longer eligible based on patient's age to complete this topic MENINGOCOCCAL GROUPS A/C/Y/W VACCINE Aged Out No longer eligible based on patient's age to complete this topic PNEUMOCOCCAL VACCINE Aged Out No long er eligible based on patient's age to complete this topic Procedures Procedure Name Priority Date/Time Associated Diagnosis Comments PAP IG LB +HPV APTIMA REFLEX 16,18/45 Routine 10/13/2023 10:45 AM TUFTING MACHINE FIXER Well woman exam with routine gynecological exam Special screening examination for human papillomavirus (HPV) HEPATITIS C ANTIBODY W RFLX PCR 12/24/2022 12:56 PM CDT HIV-1 HIV-2 ANTIBODY + HIV P24 AG PANEL Routine 12/24/2022 12:56 PM CDT Screening for HIV without presence of risk factors from Last 3 Months or Most Recently Relevant to Health Maintenance Results * PAP IG LB +HPV APTIMA REFLEX 16,18/45 (10/13/2023 10:45 AM TUFTING MACHINE FIXER) Diagnosis [facility] INSURANCE BILL Comment: NEGATIVE FOR INTRAEPITHELIAL LESION OR MALIGNANCY. THIS SPECIMEN WAS RESCREENED PART OF OUR SPA ATTENDANT PROGRAM. Specimen Adequacy [facility] INSURANCE BILL Comment:Satisfactory for tony luation. No endocervical component is identified. Clinician Provided ICD10 [facility] INSURANCE BILL Comment: Z01.419 Z11.51 Performed by [facility] INSURANCE BILL Comment:Fauzia Butler Cyto technologist (ASCP) QC Reviewed by [facility] INSURANCE BILL Comment:Mary Santana ytotechnologist (ASCP) Comment . [facility] INSURANCE BILL Note [facility] INSURANCE BILL Comment: The Pap smear is a screening test designed to aid in the detection of premalignant and malignant conditions of the uterine cervix. It is not a diagnostic procedure and should not be used as the sole means of detecting cervical cancer. Both false-positive and false-negative reports do occur. . [facility]GLBP CPT Code Automation [facility] INSURANCE BILL Comment: This liquid based ThinPrep(R) pap test was screened with the use of an image guided system. Human papillomavirus Aptima Negative Negative [facility] INSURANCE BILL Comment: This nucleic acid amplification test detects fourteen high-risk HPV types (16,18,31,33,35,39,45,51,52,56,58,59,66,68) without differentiation. HPV Genotype Reflexed [facility] INSURANCE BILL Comment:Criteria not met, HP V Genotype not performed. PART OF UTERINE CERVIX / Unknown 10/13/2023 10:45 AM TUFTING MACHINE FIXER 10/13/2023 Narrative [facility] INSURANCE BILL - 10/17/2023 3:10 PM TUFTING MACHINE FIXER Source.............Cervix;Endocervix No. of containers..01 ThinPrep Vial Resulting Agency Comment Lab Testing performed at: [facility] [id number] Trey Gloria MD LAB - PATHOLOGY/CYTOLOGY OR DERABLES Final Result [facility] INSURANCE BILL [address] [place] [address] * (ABNORMAL) HEPATITIS C ANTIBODY W RFLX PCR (12/24/2022 12:56 PM CDT) Hepatitis C Antibody Reactive( A) Non Reactive [facility] INSURANCE BILL Comment:FASTING 12/24/2022 12:5 6 PM CDT 12/24/2022 Narrative Resulting Agency Comment Lab Testing performed at: [facility] [address] [facility] [id number] Sophia Briones MD LAB - CHEMISTRY ORDERABLES Fin al Result Performing Organization Address [facility] Co de Phone Number [facility] INSURANCE BILL [address] [place] [address] * HIV-1 HIV-2 ANTIBODY + HIV P24 AG PANEL (12/24/2022 12:56 PM CDT) Pathologist [facility] HIV Screen 4th Generation w Reflex Non Reactive Non Reactive [facility] INSURANCE BILL Comment: HIV Negative HIV-1/HIV-2 antibodies and HIV-1 p24 antigen were NOT detected. There is no laboratory evidence of HIV infection. FASTING Blood BLOOD SPECIMEN / Unknown 12/24/2022 12:56 PM CDT 12/24/2022 Narrative Resulting Agency Comment Lab Testing performed at: [facility] [address] [place] [phone] Sophia Briones MD LAB - CHEMISTRY ORDERABLES Fin al Result Performing Organization Address [facility] de Phone Number [facility] INSURANCE BILL [address] [place] [address] from Last 3 Months or Most Recently Relevant to Health Maintenance Insurance AETNA AETNA AETNA Advance Directives * Full Code (Latest Code Status on File) Date Activated Date Inactivated Comments 08/21/2021 11:11 AM 08/24/2021 4:04 PM * Full Code Date Activated Date Inactivated Comments 07/26/2021 8:27 PM 07/27/2021 9:56 AM * Full Code Date Activated Date Inactivated Comments 07/26/2021 3:01 PM 07/26/2021 8:27 PM * Full Code Date Activated Date Inactivated Comments 04/24/2021 6:30 PM 04/24/2021 8:31 PM * Full Code Date Activated Date Inactivated Comments 04/24/2021 6:25 PM 04/24/2021 6:30 PM Care Teams Sap Senior Developer Relationship Specialty [place] [address] [place] [address] PCP - General Internal Medicine 10/19/20 [place] [address] [place] [address] PCP - Attributed-[employer] 05/18/23 Jon Daniel III, MD [address] [place] [address] Neurology 12/07/20 [place] [address] [address] [place] [address] Obstetrics and Gynecology 12/07/20
--- OUTSIDE RECORDS SUMMARY | 2025-05-30 11:34 | XMS_ITS | Encounter Summary ---
Author Organization [facility] Address [address] [facility] [place] [address] Care Team Providers Care Acoustical Tile Patternmaker Name Role Phone Suzette Carranza MD Primary Care Provider [phone] Sophia Briones MD Primary Care Provider Suzette Carranza MD Unavailable Fredy HUMPHRIES MD, Jon Martin Unavailable [phone] Trey Gloria MD Unavailable Sophia Briones MD Unavailable [phone] Reason for Visit * Reason Onset Date Comments Appointment 07/02/2019 Encounter Details Date Type Department Care Team (Late st Contact Info) Description 07/02/2019 Telephone [facility] - [facility] [address] [address] Yazan Olivera MD [facility] [address] [address] Appointment Social History Tobacco Use Types Packs/Day Years Used Date Smoking Tobacco: Never Smokeless Tobacco: Never Alcohol Use Standard Drinks/Week Comments Yes 0 (1 standard drink = 0.6 oz pur e alcohol) socially- not during Education Answer Date Recorded What is the highest level of school you have completed or the highest degree you have received? 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 Answer Date of Assessment Author No 05/24/2019 1:00 PM Gely Wooten RN * Is person blind or have serious difficulty seeing? Answer Date of Assessment Author No 05/24/2019 1:00 PM Gely Wooten, MARIANNE * Does person have serious difficulty walking/climbing stairs? Answer Date of Assessment Author No 05/24/2019 1:00 PM Gely Wooten RN * Does person have difficulty dressing/bathing? Answer Date of Assessment Author No 05/24/2019 1:00 PM Gely Wooten RN * Does person have difficulty doing errands alone? Answer Date of Assessment Author No 05/24/2019 1:00 PM Gely Wooten RN documented as of this encounter Mental Status * Does person have difficulty concentrating/remembering/making decisions? Answer Entry Date Author No 05/24/2019 1:00 PM Gely Wooten RN documented in this encounter Miscellaneous Notes * Telephone Encounter - Bran Marvin - 07/02/2019 2:55 PM CST Patient called stating she is needing to reschedule her appt. Annamarie is currently in the hospital and asked if someone could give her a phone call a little after 4pm when she has her cell phone. IGRAPHER documented in this encounter Plan of Treatment Upcoming Encounters Date Type Department Care Team (Late st Contact Info) Description 12/29/2025 1:00 PM CDT Office Visit [facility] Family Medicine [id number] [address] [place] [address] [facility] [address] [place] [address] documented as of this encounter Visit Diagnoses Not on filedocumented in this encounter Additional Health Concerns Infection Onset Date Last Indicated Resolved Time COVID-19 Under Investigation 10/21/2023 10/21/2023 10/21/2023 10:27 AM MULTIGRAPHER documented as of this encounter Care Teams Acoustical Tile Patternmaker Relationship Specialty Start Date End Date Suzette Carranza MD PCP - General Internal Medicine 09/13/14 10/18/20 [place] [address] [facility] [address] [place] [address] PCP - General Internal Medicine 10/19/20 [place] [address] [facility] [address] [place] [address] PCP - Attributed-[employer] STL 05/18/23 Suzette Carranza MD Internal Medicine 10/19/20 12/23/22 Jon Daniel III, MD [address] [place] [address] Neurology 12/07/20 [place] [address] [facility] [address] [place] [address] Obstetrics and Gynecology 12/07/20 documented as of this encounter
--- OUTSIDE RECORDS SUMMARY | 2025-05-30 11:34 | XMS_ITS | Encounter Summary ---
Author Organization [facility] Address [address] [facility] [place] [address] Care Team Providers Care Print Room Worker Name Role Phone Suzette Carranza MD Primary Care Provider Sophia Briones MD Primary Care Provider Suzette Carranza MD Unavailable Fredy HUMPHRIES MD, Jon Martin Unavailable [phone] Trey Gloria MD Unavailable [phone] Sophia Briones MD Unavailable [phone] Reason for Visit * Reason Onset Date Comments Future Appointment 06/11/2019 Encounter Details Date Type Department Care Team (Late st Contact Info) Description 06/11/2019 Telephone [facility] [address] [place] [address] Yazan Olivera MD [address] [address] Future Appointment Social History Tobacco Use Types Packs/Day [...] on file Legal Sex Female 5:39 AM AUTO TUNE UP MECHANIC Gender Identity Not on file Sexual Orientation Not on file 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 Answer Date of Assessment Author No 05/24/2019 1:00 PM CDT Gely Aaron RN * Is person blind or have serious difficulty seeing? Answer Date of Assessment Author No 05/24/2019 1:00 PM EDDIET Gely Aaron, MARIANNE * Does person have serious difficulty walking/climbing stairs? Answer Date of Assessment Author No 05/24/2019 1:00 PM CDT Gely Aaron RN * Does person have difficulty dressing/bathing? Answer Date of Assessment Author No 05/24/2019 1:00 PM CDT Gely Aaron RN * Does person have difficulty doing errands alone? Answer Date of Assessment Author No 05/24/2019 1:00 PM Gely Wooten RN documented as of this encounter Mental Status * Does person have difficulty concentrating/remembering/making decisions? Answer Entry Date Author No 05/24/2019 1:00 PM CDGely Ford RN documented in this encounter Miscellaneous Notes * Telephone Encounter - Melyssa Jain - 06/11/2019 2:07 PM CDT She needs to [facility] 06-11-19 as she had to leave to go to her baby in hospital. documented in this encounter Plan of Treatment Upcoming Encounters Date Type Department Care Team (Late st Contact Info) Description 12/29/2025 1:00 PM CDT Office Visit [facility] - Family Medicine [address] [facility] [address] [place] [address] [place] [address] [facility] [address] [place] [address] documented as of this encounter Visit Diagnoses Not on filedocumented in this encounter Additional Health Concerns Infection Onset Date Last Indicated Resolved Time COVID-19 Under Investigation 10/21/2023 10/21/2023 10/21/2023 10:27 AM AUTO TUNE UP MECHANIC documented as of this encounter Care Teams Print Room Worker Relationship Specialty Start Date End Date Suzette Carranza MD PCP - General Internal Medicine 09/13/14 10/18/20 [place] [address] [facility] [address] [place] [address] PCP - General Internal Medicine 10/19/20 [place] [address] [facility] [address] [place] [address] PCP - Attributed-[employer] STL 05/18/23 Suzette Carranza MD Internal Medicine 10/19/20 12/23/22 Jon Daniel III, MD [address] [place] [address] Neurology 12/07/20 [place] [address] [facility] [address] [place] [address] Obstetrics and Gynecology 12/07/20 documented as of this encounter
== END 2025-05-30 11:18 | disposition home or self-care (01) ==
PROVIDERS: Emergency Provider Registered Nurse
DX: R05.1 Acute cough (principal); J06.9 Acute upper respiratory infection, unspecified; G40.909 Epilepsy, unspecified, not intractable, without status epilepticus
CPT/HCPCS: 87081; 87880; 99213; G0463

== ENCOUNTER 2025-06-24 14:06 | Emergency (ER) | payer OTHER, SELFPAY ==
--- OUTSIDE RECORDS SUMMARY | 2025-06-24 14:09 | XMS_ITS | Encounter Summary ---
Author Organization [facility] Address [address] [facility] [place] [address] Care Team Providers Care Jewelry Designer Name Role Phone Suzette Carranza MD Primary Care Provider Sophia Briones MD Primary Care Provider [phone] Suzette Carranza MD Unavailable [phone] Fredy HUMPHRIES MD, Jon Martin Unavailable Trey Gloria MD Unavailable [phone] Sophia Briones MD Unavailable [phone] Reason for Visit * Reason Onset Date Comments Future Appointment 06/11/2019 Encounter Details Date Type Department Care Team (Late st Contact Info) Description 06/11/2019 Telephone [facility] [address] [place] [address] Yazan Olivera MD [address] [address] Future Appointment Social History Tobacco Use Types [...] on file Legal Sex Female 5:39 AM TEST DECK SUPERVISOR Gender Identity Not on file Sexual Orientation Not on file 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 [...] 06/11/2019 2:07 PM CDT She needs to [facility] 06-11-19 as she had to leave to go to her baby in hospital. documented in this encounter Plan of Treatment Upcoming Encounters Date Type Department Care Team (Late st Contact Info) Description 12/29/2025 1:00 PM CDT Office Visit [facility] - Family Medicine [address] [facility] [address] [place] [address] [place] [address] [facility] [address] [place] [address] documented as of this encounter Visit Diagnoses Not on filedocumented in this encounter Additional Health Concerns Infection Onset Date Last Indicated Resolved Time COVID-19 Under Investigation 10/21/2023 10/21/2023 10/21/2023 10:27 AM TEST DECK SUPERVISOR documented as of this encounter Care Teams Jewelry Designer Relationship Specialty Start Date End Date Suzette Carranza MD PCP - General Internal Medicine 09/13/14 10/18/[address] [place] [address] [facility] [address] [place] [address] PCP - General Internal Medicine 10/19/[address] [place] [address] [facility] [address] [place] [address] PCP - Attributed-[employer] STL 05/18/23 Suzette Carranza MD Internal Medicine 10/19/20 12/23/22 Jon Daniel III, MD [address] [place] [address] Neurology 12/07/[address] [place] [address] [facility] [address] [place] [address] Obstetrics and Gynecology 12/07/20 documented as of this encounter
--- OUTSIDE RECORDS SUMMARY | 2025-06-24 14:09 | XMS_ITS | Clinical Summary ---
Author Organization [facility] Address [address] [place] [address] Care Team Providers Care English As A Second Language Teacher Name Role Phone Sophia Briones MD Primary Care Provider [phone] Allergies No known active allergies Medications ferrous sulfate 325 mg (65 mg of elemental iron) tablet Take 325 mg by mouth daily Active clonazePAM (KlonoPIN) 0.5 mg disintegrating tabletIndications:I ntractable generalized idiopathic epilepsy without status epilepticus (HCC) Take 1 tablet (0.5 mg total) by mouth 2 (two) times a day as needed for seizures 15 tablet 1 5 11/15/19 26 Active lamoTRIgine (LaMICtal) 200 mg tabletIndications:I ntractable generalized 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 08/06/2018 Encounters Date Type Department Care Team Description 05/18/2025 10:00 AM CDT Telemedicine [facility] Medicine Epilepsy [address] [facility] 6th [place] [address] [place] [address] Jon Daniel III, MD Intractable generalized idiopathic [...] on file Legal Sex Female 9:46 PM BILLING AUDITOR Gender Identity Not on file Sexual Orientation Not on file Obstetrics History Para Term AB IAB SAB Ectopic Multiple Livin g Live Births 1 Date Outcome GA Total Labor Labor/2nd/3rd Weight Sex Type Anes PTL Tita A1 A5 Name Clin Last Filed Vital Signs Vital Sign Reading Time Taken Comments Blood Pressure 124/81 07/18/2021 8:18 AM BILLING AUDITOR Pulse 83 07/18/2021 8:18 AM BILLING AUDITOR Temperature 36.2 C (97.1 F) 07/18/2021 8:18 AM BILLING AUDITOR Respiratory Rate 16 08/12/2020 11:19 AM BILLING AUDITOR Oxygen Saturation 99% 07/18/2021 8:18 AM BILLING AUDITOR Inhaled Oxygen Concentration - - Weight 89 kg (196 lb 5 oz) 07/18/2021 8:18 AM CS T Height 172.7 cm (5' 8) 07/18/2021 8:18 AM BILLING AUDITOR Body Mass Index 29.85 07/18/2021 8:18 AM BILLING AUDITOR Plan of Treatment Health Maintenance Due Date Last Done Comments Cervical Cancer Screening 1990 Depression Screening 1990 Hepatitis C Screening 1990 Varicella Vaccines (1 of 2 - 13+ 2-dose series) 2003 Hepatitis B Screening 2008 Regular Well Visit/Exam 18-64 2008 HPV Vaccines (1 - 3-dose SCDM series) 2017 Covid-19 Vaccine (2 - 2025-26 season) 2025 06/12/2023, 06/12/2023 DTaP/Tdap/Td Vaccine (4 - Td or Tdap) 06/12/2031 06/12/2021, 05/03/2019, 04/15/2019 Influenza Vaccine Completed 05/26/2025, , 06/12/2023, Additional history exists Pneumococcal vaccine <65 Aged Out No longer eligible based on patient's age to complete this topic Insurance [facility] Care Teams English As A Second Language Teacher Relationship Specialty [place] [address] [address] PCP - General Internal Medicine 09/07/21
--- OUTSIDE RECORDS SUMMARY | 2025-06-24 14:09 | XMS_ITS | Clinical Summary ---
Author Organization [facility] Address [address] [facility] [place] [address] Care Team Providers Care Perfume Compounder Name Role Phone Sophia Briones MD Primary Care Provider [phone] Fredy HUMPHRIES MD, Jon Martin Unavailable [phone] Trey Gloria MD Unavailable [phone] Sophia Briones MD Unavailable [phone] Source Comments [facility],non-owned Affiliates and Associated Physician Practices is amultiple site organization consisting of ambulatory clinics and hospital sitesin [place], [place], [place] and [place]. This disclosure is being madepursuant to the Care Everywhere program and may not contain all information available regarding this patient. Last updated 18.[facility] Allergies No known active allergies Medications * [...] 12/24/2022 Immunizations Immunization Administration Dates Next Due Workiva primary monoval ent 12+ yr 0.3mL Purple [...] on file Legal Sex Female 5:39 AM SUPERVISOR WEBBING Gender Identity Not on file Sexual Orientation [...] Description 12/29/2025 1:00 PM CDT Office Visit [facility] - Family Medicine [address] [facility] [address] [place] [address] [place] [address] [facility] [address] [place] [address] Health Maintenance Due Date Last [...] APTIMA REFLEX 16,18/45 Routine 10/13/2023 10:45 AM SUPERVISOR WEBBING Well woman exam with routine gynecological exam [...] +HPV APTIMA REFLEX 16,18/45 (10/13/2023 10:45 AM SUPERVISOR WEBBING) Diagnosis [facility] INSURANCE BILL Comment: NEGATIVE FOR INTRAEPITHELIAL LESION OR MALIGNANCY. THIS SPECIMEN WAS RESCREENED PART OF OUR MEDICATION AID PROGRAM. Specimen Adequacy [facility] INSURANCE BILL [...] guided system. Human papillomavirus Aptima Negative Negative [facility] INSURANCE BILL Comment: This nucleic acid amplification test detects fourteen high-risk HPV types (16,18,31,33,35,39,45,51,52,56,58,59,66,68) without differentiation. HPV Genotype Reflexed [facility] INSURANCE BILL Comment:Criteria not met, HP V Genotype not performed. PART OF UTERINE CERVIX / Unknown 10/13/2023 10:45 AM SUPERVISOR WEBBING 10/13/2023 Narrative [facility] INSURANCE BILL - 10/17/2023 3:10 PM SUPERVISOR WEBBING Source.............Cervix;Endocervix No. of containers..01 ThinPrep Vial Resulting Agency Comment Lab Testing performed at: [facility] [id number] Trey Gloria MD LAB - PATHOLOGY/CYTOLOGY OR DERABLES Final Result [facility] INSURANCE BILL [address] [place] [address] * (ABNORMAL) HEPATITIS C ANTIBODY W RFLX PCR (12/24/2022 12:56 PM CDT) Hepatitis C Antibody Reactive( A) Non Reactive [facility] INSURANCE BILL Comment:FASTING 12/24/2022 12:5 6 PM CDT 12/24/2022 Narrative Resulting Agency Comment Lab Testing performed at: [facility] [address] [facility] [id number] Sophia Briones MD LAB - CHEMISTRY ORDERABLES Fin al Result Performing Organization Address [facility] Co de Phone Number [facility] INSURANCE BILL [address] [place] [address] * HIV-1 HIV-2 ANTIBODY + HIV P24 AG PANEL (12/24/2022 12:56 PM CDT) Pathologist [facility] HIV Screen 4th Generation w Reflex Non Reactive Non Reactive [facility] INSURANCE BILL Comment: HIV Negative HIV-1/HIV-2 antibodies and HIV-1 p24 antigen were NOT detected. There is no laboratory evidence of HIV infection. FASTING Blood BLOOD SPECIMEN / Unknown 12/24/2022 12:56 PM CDT 12/24/2022 Narrative Resulting Agency Comment Lab Testing performed at: [facility] [address] [place] [id number] Sophia Briones MD LAB - CHEMISTRY ORDERABLES Fin al Result Performing Organization Address [facility] de Phone Number [facility] INSURANCE BILL [address] [place] [address] from Last 3 Months or Most Recently [...] 6:25 PM 04/24/2021 6:30 PM Care Teams Perfume Compounder Relationship Specialty [place] [address] [facility] [employer] [address] [place] [address] PCP - General Internal Medicine 10/19/20 [place] [address] [facility] [employer] [address] [place] [address] PCP - Attributed-[employer] STL 05/18/23 Jon Daniel III, MD [address] [place] [address] Neurology 12/07/20 [place] [address] [facility] [employer] [address] [place] [address] Obstetrics and Gynecology 12/07/20
[2025-06-24 14:10] VITALS: BP 112/72; PULSE 80; RESP 22; TEMP 36.6; O2SAT 100
--- OUTSIDE RECORDS SUMMARY | 2025-06-24 14:11 | XMS_ITS | Encounter Summary ---
Author Organization [facility] Address [address] [facility] [place] [address] Care Team Providers Care Orthotics Technician Name Role Phone Suzette Carranza MD Primary Care Provider Sophia Briones MD Primary Care Provider Suzette Carranza MD Unavailable [phone] Fredy HUMPHRIES MD, Jon Martin Unavailable [phone] Trey Gloria MD Unavailable Sophia Briones MD Unavailable [phone] Reason for Visit * Reason Onset Date Comments Appointment 07/02/2019 Encounter Details Date Type Department Care Team (Late st Contact Info) Description 07/02/2019 Telephone [facility] - SYSTEMS [facility]GR [address] [address] Yazan Olivera MD [facility] [address] Appointment Social History Tobacco Use [...] on file Legal Sex Female 5:39 AM OPHTHALMIC AIDE Gender Identity Not on file Sexual Orientation Not on file 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 HALMIC AIDE documented in this encounter Plan of Treatment Upcoming Encounters Date Type Department Care Team (Late st Contact Info) Description 12/29/2025 1:00 PM CDT Office Visit [facility] Family Medicine [address] [address] [place] [address] [facility] [address] [place] [address] documented as of this encounter Visit Diagnoses Not on filedocumented in this encounter Additional Health Concerns Infection Onset Date Last Indicated Resolved Time COVID-19 Under Investigation 10/21/2023 10/21/2023 10/21/2023 10:27 AM OPHTHALMIC AIDE documented as of this encounter Care Teams Orthotics Technician Relationship Specialty Start Date End Date Suzette Carranza MD PCP - General Internal Medicine 09/13/14 10/18/20 [place] [address] [facility] [address] [place] [address] PCP - General Internal Medicine 10/19/20 [place] [address] [facility] [address] [place] [address] PCP - Attributed-[employer] STL 05/18/23 Suzette Carranza MD Internal Medicine 10/19/20 12/23/22 Jon Daniel III, MD [address] [place] [address] Neurology 12/07/20 [place] [address] [facility] [address] [place] [address] Obstetrics and Gynecology 12/07/20 documented as of this encounter
--- NOTE | 2025-06-24 14:51 | ED.URI ---
HPI - URI/Sore Throat General Chief Complaint: Upper Respiratory Infection Stated Complaint: throat Time Seen by Provider: 06/24/25 14:45 Source: patient, RN notes reviewed and old records reviewed Mode of arrival: ambulatory Limitations: no limitations History of Present Illness HPI Narrative: 35 year old female presents to [facility] care with complaints of sore throat which started last evening. Patient reports that she had 100.7F temperature this morning and headache took Ibuprofen and Tylenol and by 1030 was sweating and fever broke. Patient reports that son tested positive for strep this past week. Patient reports no cough or feelings of congestion no ear pain or any body aches. MD elicited complaint: fever, sore throat and other (headache) Pertinent past history: other (strep throat) Onset (ago): day(s) (last night) Consistency: constant Pain scale (0-10): 3 Able to tolerate fluids by mouth: Yes Exacerbating factors: swallowing Treatments prior to arrival: acetaminophen and ibuprofen Related Data Home Medications ?Medication ?Instructions ?Recorded ?Confirmed ?Last Taken ?Type lamotrigine 200 mg tablet 100 mg PO QAM 03/03/20 08/19/23 Unknown History Allergies Allergy/AdvReac Type Severity Reaction Status Date / Time No Known Allergies Allergy Verified 05/30/25 10:40 Review of Systems Review of Systems: CONSTITUTIONAL: Reports malaise, chills, sweats, or fever. EYES: Denies visual changes, redness, or discharge. ENT: Reports no rhinorrhea, congestion,no sinus pain,no otalgia and positive for sore throat. CARDIOVASCULAR: Denies chest pain, palpitations, or edema. RESPIRATORY: Reports no cough.? Denies dyspnea. GASTROINTESTINAL: Denies abdominal pain, nausea, vomiting, diarrhea SKIN: Denies rash or itching. MUSCULOSKELETAL: Denies myalgia. NEUROLOGIC: reports headache. All systems reviewed & are unremarkable except as noted in HPI and below PMFSH Past Medical History Medical History Asthma as child Preeclampsia Epilepsy Surgical History Surgical History H/O laparoscopy endometriosis surgery History of dilatation and curettage Previous section x2 Family History Family History Other Diabetes mellitus Hypertension Social History Social History Additional smoking assessment comments: no tobacco use Alcohol intake: current Substance use type: does not use Living arrangements: with family Gender identity (if verbalized by the patient): Female Comments At time of signature, agree with nursing past medical, surgical, social and family history. There is no relevant family history pertinent to the presenting complaint Exam Narrative: GENERAL: Well-appearing, well-nourished, and in no acute distress. HEAD: Normocephalic EYES: PERRLA, conjunctivae clear ENT: Nares clear, turbinates edematous and erythematous, clear discharge. Mucous membranes moist. TM pearly ash with dull light reflex bilaterally; no tragal tenderness. Oropharynx erythematous without lesions. Tonsils red and enlarged and without exudate, no drooling, no hoarseness, no trismus, uvula midline. NECK: Supple. lymphadenopathy CHEST: Clear to auscultation, breath sounds equal. No wheezing, rhonchi, rales, or stridor. No respiratory distress, speaks in full sentences.SAO2 100% on room air HEART: Regular rate and rhythm. No murmur heard. SKIN: Warm, dry, no rash. NEURO: Alert and oriented x3. PSYCH: Normal mood and affect Course Course Emergency Course: Patient is aware of diagnosis, understands and agrees to treatment plan.? Anticipatory guidance given.? Patient agrees to follow-up as directed and is aware of reasons to seek care at the emergency department. Portions of this record may have been created with voice recognition software Level of Care: Express Care Visit Vital Signs Vital signs: Vital Signs Temperature 36.6 C 06/24/25 14:10 Pulse Rate 80 06/24/25 14:10 Respiratory Rate 22 H 06/24/25 14:10 Blood Pressure 112/72 06/24/25 14:10 Pulse Oximetry 100 06/24/25 14:10 Oxygen Delivery Room Air 06/24/25 14:10 Temperature 36.6 C 06/24/25 14:10 Pulse Rate 80 06/24/25 14:10 Respiratory Rate 22 H 06/24/25 14:10 Blood Pressure 112/72 06/24/25 14:10 Pulse Oximetry 100 06/24/25 14:10 Oxygen Delivery Room Air 06/24/25 14:10 Reviewed MDM - URI/Sore Throat MDM Narrative Medical decision making narrative: Differential diagnosis considered: [place] virus, strep pharyngitis, allergic rhinitis, upper respiratory tract infection, sinusitis, rhinosinusitis, nasopharyngitis. viral pharyngitis, otitis media, otitis externa, pneumonia, bronchitis, viral cough syndrome, viral syndrome, and influenza.? Exam findings show no acute concerns or changes; patient is non-toxic appearing and is in no distress.? Patient is appropriate for outpatient treatment and follow-up. Differential Diagnosis Differential diagnosis: Likely upper respiratory infection, viral infection, pharyngitis and other (strep pharyngitis) Lab Data Attestation: I reviewed the patient's lab results. Lab results narrative: strep screen positive Labs: Lab Results 06/24/25 Range/Units 14:58 POC Grp A Strep Screen Positive (Negative) reviewed Critical Care Time Critical Care Time Critical Care Time: No Discharge Plan Discharge Clinical Impression: Acute streptococcal pharyngitis Patient Disposition: Home Condition: Stable Instructions: Strep Throat (ED) Additional Instructions: You tested positive for Group A strep . Take the entire course of antibiotics. Throw away your current toothbrush and begin using a new toothbrush in 48 hours in order to prevent re-infection. Sanitize all reusable water bottles . Do not share items with others. Salt water gargles may alleviate some of the throat discomfort. You can take Tylenol or ibuprofen per the package instructions for pain/fever. If your symptoms persist, change or worsen significantly before you can contact your personal physician then please, without delay, go to the emergency department for further evaluation. Follow-up with PCP in 7-10 days or sooner if needed Patient Language: [place] Prescriptions: New amoxicillin 500 mg capsule 500 mg PO Q8H 10 Days Qty: 30 0RF No Action lamotrigine 200 mg tablet 100 mg PO QAM Follow-up/Referrals: PHYSICIAN NOT ON STAFF,NONSTAFF [Primary Care Provider] Time of Disposition: 14:54 Quality [place] Coma Scale Eyes: Open Verbal: Oriented and Alert Motor: Follows Commands Philip Coma Total Score: 15
[2025-06-24 15:00] LABS: EDSTREPNEGPOS1 Positive (Negative)
== END 2025-06-24 14:56 | disposition home or self-care (01) ==
PROVIDERS: Emergency Provider Registered Nurse
DX: J02.0 Streptococcal pharyngitis (principal); G40.909 Epilepsy, unspecified, not intractable, without status epilepticus
CPT/HCPCS: 87880; 99213; G0463